=== PATIENT | male | born 1965 | race Caucasian/White ===

== ENCOUNTER 2024-10-10 12:28 | Emergency (ER) | payer OTHER ==
[~2024-10-10] VITALS: Ht 193 cm; Wt 81.6 kg
[2024-10-10] MEDS ORDERED: diphenhydrAMINE hydrochloride 50 MG/ML VIAL IV ONE (12:55)
[2024-10-10] MEDS ORDERED: SODIUM CHLORIDE 0.9% 1,000 ML IV ONE (12:55)
[2024-10-10] MEDS ORDERED: Ondansetron Hydrochloride 4 MG/2 ML VIAL IV ONE (12:55)
[2024-10-10] MEDS ORDERED: diazePAM 10 MG/2 ML SYR IV ONE (12:55)
[2024-10-10] MEDS ORDERED: Metoclopramide Hydrochloride 10 MG/2 ML VIAL IV ONE (12:55)
[2024-10-10 13:13] LABS: MEAN CELL VOLUME 87.8 fl (80.0-94.0); MEAN CORPUSCULAR HGB 28.9 pg (27.0-31.0); MEAN PLATELET VOLUME 9.9 fl (9.6-12.3); NUCLEATED RED BLOOD CELL 0.0 % (0.0-0.0); NUCLEATED RED BLOOD CELL 0.0 10*3/uL (0.0-0.0); PLATELET COUNT AUTOMATED 348 10*3/uL (130-400); RED CELL DISTRI WIDTH 14.7 % (0-14.5)
[2024-10-10 13:30] LABS: MANUAL DIFF REFLEX YES
[2024-10-10 13:31] LABS: BILIRUBIN Negative (Negative); BLOOD Negative (Negative); CLARITY Turbid (Clear); COLOR Yellow (Yellow); KETONE Trace (Negative); LEUKO ESTERASE 1+ (Negative); NITRITE Positive (Negative); PH 8.0 (4.5-8.0); SPECIFIC GRAVITY 1.025 (1.001-1.030); UROBILINOGEN 1.0 E.U./dl (0.0-1.0)
[2024-10-10 13:36] LABS: BUN 18 mg/dl (9-23); SGPT/ALT 10 U/L (5-49)
[2024-10-10 13:37] LABS: PLATELET SUFFICIENCY NORMAL (NORMAL)
[2024-10-10 13:38] LABS: URINE AMPHETAMINES Positive (1000ng/ml); URINE BARBITURATES Negative (200ng/ml); URINE BENZODIAZEPINES Positive (200ng/ml); URINE CANNABINOIDS (THC) Positive (50ng/ml); URINE COCAINE Negative (300ng/ml); URINE METHADONE Negative (300ng/ml); URINE OPIATES Negative (300ng/ml); URINE PHENCYCLIDINE Negative (25ng/ml)
[2024-10-10 13:54] LABS: BACTERIA 3+; MUCOUS TRACE
[2024-10-10] MEDS ORDERED: Ondansetron4 MG PO (14:21)
[2024-10-10] MEDS ORDERED: REGLAN10 M1 PO (14:21)
[2024-10-10] MEDS ORDERED: CIPRO500 MG PO (14:21)
== END 2024-10-10 14:21 | disposition home or self-care (01) ==
LOC: ED 12:28
PROVIDERS: Emergency Medicine
DX: R11.15 Cyclical vomiting syndrome unrelated to migraine (principal); F12.10 Cannabis abuse, uncomplicated; N39.0 Urinary tract infection, site not specified; F84.0 Autistic disorder